=== PATIENT | female | born 1990 | race Hispanic/Latino ===

== ENCOUNTER 2019-05-05 00:28 | Inpatient (IN) ==
[2019-05-05 00:44] LABS: URINE SOURCE VOIDED
[2019-05-05 00:54] LABS: BILIRUBIN URINE NEGATIVE (NEGATIVE); BLOOD URINE SMALL (NEGATIVE); COLOR YELLOW; GLUCOSE URINE NEGATIVE (NEGATIVE); KETONE URINE NEGATIVE (NEGATIVE); LEUKOCYTES URINE MODERATE (NEGATIVE); NITRITE URINE NEGATIVE (NEGATIVE); PROTEIN URINE NEGATIVE (NEGATIVE); SP GRAVITY URINE 1.013; TURBIDITY URINE CLEAR (CLEAR); UROBILINOGEN URINE NORMAL (NORMAL)
[2019-05-05] MEDS: LR 1,000 ML IV SCH ×2 (02:30→03:34)
[2019-05-05 02:44] LABS: BASO# 0.02 X1000 (0.0-0.2); BASO% 0.2 % (0.0-0.8); EOS# 0.04 X1000 (0.0-0.7); EOS% 0.4 % (0.0-10.0); HEMATOCRIT 35.3 % (37.0-47.0); HEMOGLOBIN 12.2 g/dL (12.0-16.0); IMM GRAN# 0.07 X1000 (0.0-0.04); IMM GRAN% 0.8 % (0.0-0.5); LYMPH# 2.69 X1000 (1.2-3.4); LYMPH% 29.7 % (20.5-51.1); MCH 30.7 PG (27-31); MCHC 34.6 g/dL (33-37); MCV 88.7 FL (81-99); MONO# 0.75 X1000 (0.11-0.59); MONO% 8.3 % (1.7-9.3); MPV 11.6 FL (7.4-10.4); NEUT# 5.48 X1000 (1.4-6.5); NEUT% 60.6 % (42.2-75.2); PLT 198 X1000 (130-400); RBC 3.98 XMIL (4.2-5.4); RDW 12.7 % (11.5-14.5); WBC 9.05 X1000 (4.8-10.8)
[2019-05-05] MEDS ORDERED: PEPCID PO PRN ×2 (03:21)
[2019-05-05] MEDS ORDERED: REGLAN PO PRN (03:21)
[2019-05-05] MEDS ORDERED: ZOFRAN IV PRN (03:21)
[2019-05-05] MEDS ORDERED: TYLENOL PO PRN (03:21)
[2019-05-05] MEDS ORDERED: STADOL IV PRN (03:21)
[2019-05-05] MEDS ORDERED: KEFZOL 2 GM/D5W 2 GM/50 ML IVPB IV PRN (03:21)
[2019-05-05] MEDS ORDERED: PEPCID IV PRN (03:21)
[2019-05-05] MEDS ORDERED: XYLOCAINE-MPF 1% INJ PRN ×2 (03:23→07:04)
[2019-05-05] MEDS ORDERED: MINERAL OIL TOP PRN (03:23)
[2019-05-05] MEDS ORDERED: PITOCIN 30 UNITS/NS 30 UNIT/500 ML IV.SOLN IV SCH ×2 (03:30→07:15)
[2019-05-05] MEDS ORDERED: SODIUM CHLORIDE 0.9% INJ SCH (03:30)
[2019-05-05] MEDS ORDERED: LR 1,000 ML IV SCH (03:30)
[2019-05-05] MEDS ORDERED: NAROPIN 0.2% INJ ONE (03:45)
[2019-05-05 04:00] LABS: UR AMPHETAMINES QUAL NONE DETECTED (NONE DETECT); UR BARBITUATES QUAL NONE DETECTED (NONE DETECT); UR BENZODIAZEPIN QUAL NONE DETECTED (NONE DETECT); UR CANNABINOIDS QUAL NONE DETECTED (NONE DETECT); UR COCAINE QUAL NONE DETECTED (NONE DETECT); UR METHADONE QUAL NONE DETECTED (NONE DETECT); UR OPIATES QUAL NONE DETECTED (NONE DETECT); UR OXYCODONE QUAL NONE DETECTED (NONE DETECT); UR PCP QUAL NONE DETECTED (NONE DETECT)
[2019-05-05] MEDS ORDERED: FENTANYL-BUPIV-NS 500 MCG-0.125% 250 ML EPIDURAL SCH (04:00)
[2019-05-05] MEDS ORDERED: MOTRIN PO PRN (07:04)
[2019-05-05] MEDS ORDERED: BENADRYL PO PRN (07:04)
[2019-05-05] MEDS ORDERED: CYTOTEC PO PRN (07:04)
[2019-05-05] MEDS ORDERED: ATARAX PO PRN (07:04)
[2019-05-05] MEDS ORDERED: BENADRYL IV PRN (07:04)
[2019-05-05] MEDS ORDERED: PITOCIN IM PRN (07:04)
[2019-05-05] MEDS ORDERED: PERI MEDS (DERMOPLAST/NUPERCAINAL/TUCKS) MISC PRN (07:04)
[2019-05-05] MEDS ORDERED: NORCO-5 PO PRN (07:04)
[2019-05-05] MEDS ORDERED: M-M-R II VACCINE SUBQ ONE (07:04)
[2019-05-05] MEDS ORDERED: HYDROXYZINE IM PRN (07:04)
[2019-05-05] MEDS ORDERED: AMBIEN PO PRN (07:04)
[2019-05-05] MEDS ORDERED: NORCO-10 PO PRN (07:04)
[2019-05-05] MEDS ORDERED: BOOSTRIX VACCINE IM ONE (07:04)
[2019-05-05] MEDS ORDERED: MINERAL OIL PO PRN (07:04)
[2019-05-05] MEDS ORDERED: PITOCIN 20 UNITS/NS 20 UNITS/1,000 ML IV.SOLN IV SCH (07:15)
--- NOTE | 2019-05-05 08:29 | HISTORY AND PHYSICAL ---
HISTORY OF PRESENT ILLNESS: The patient is a 29-year-old female G3, P2 at 39 and 4/7 weeks who presents to Labor and Delivery with complaints of uterine contractions. She has been having contractions most of the day and then became more regular as the night wore on. care was unremarkable. Group B strep culture swab was negative. PAST MEDICAL HISTORY: Unremarkable. PAST SURGICAL HISTORY: None. PAST OB HISTORY: G3, P2. Spontaneous vaginal delivery x2. [employer] SUPERVISOR HISTORY: Menarche at age 15. REVIEW OF SYSTEMS: All systems reviewed and noncontributory. FAMILY HISTORY: Unremarkable. SOCIAL HISTORY: Tobacco use, none. Alcohol use, none. MEDICATIONS: vitamins. ALLERGIES: No known drug allergies. PHYSICAL EXAMINATION: VITAL SIGNS: Height 5 feet 4 inches, weight 128 pounds, temperature 98.6 degrees, blood pressure 112/64, pulse of 100, respirations 20. heart rate in the 150s with good rymw-gv-abut variability. HEENT: Pupils equal, round, reactive to light and accommodation. Extraocular movements intact. Oropharynx clear. NECK: Supple. No thyromegaly. LUNGS: Clear to auscultation. HEART: Regular rate and rhythm. ABDOMEN: Gravid, nontender. Cervix was 7 cm dilated, completely effaced, -1 station. EXTREMITIES: No clubbing, cyanosis, or edema noted. NEUROLOGIC: Cranial nerves 2-12 grossly intact. Motor 5/5, DTRs 2+ bilaterally of lower extremities. ASSESSMENT AND PLAN: A 29-year-old female G3, P2 at 39 and 4/7 weeks in active labor. The patient will be admitted. We will try to obtain an epidural per patient request. Anticipate vaginal delivery. cc: Troy Jordan III, MD
--- NOTE | 2019-05-05 12:10 | OPERATIVE NOTE ---
PROCEDURE DATE: 05/05/2019 SUBJECTIVE: The patient progressed to complete pushing had spontaneous vaginal delivery of a male infant, 6 pounds 5 ounces with Apgars of 9 and 10 at 6:38 on 05/05/2019 over a second-degree midline episiotomy. Cord blood sample was obtained at this time. Placenta was delivered intact with a 2 vessel cord. Second-degree midline episiotomy was repaired with 3-0 chromic in the usual fashion. ESTIMATED BLOOD LOSS: 200 mL. ANESTHESIA: Epidural. COUNTS: All counts were correct x2. cc: Troy Jordan III, MD
[2019-05-05] MEDS: PERICOLACE PO SCH ×2 (19:38→22:05)
[2019-05-06 05:57] LABS: BASO# 0.02 X1000 (0.0-0.2); BASO% 0.2 % (0.0-0.8); EOS# 0.08 X1000 (0.0-0.7); EOS% 0.6 % (0.0-10.0); HEMATOCRIT 32.4 % (37.0-47.0); IMM GRAN# 0.06 X1000 (0.0-0.04); IMM GRAN% 0.5 % (0.0-0.5); LYMPH% 25.1 % (20.5-51.1); MCH 30.7 PG (27-31); MCV 90.5 FL (81-99); MONO# 0.76 X1000 (0.11-0.59); MONO% 6.2 % (1.7-9.3); MPV 11.3 FL (7.4-10.4); NEUT# 8.33 X1000 (1.4-6.5); NEUT% 67.4 % (42.2-75.2); PLT 169 X1000 (130-400); RBC 3.58 XMIL (4.2-5.4); RDW 13.1 % (11.5-14.5); WBC 12.35 X1000 (4.8-10.8)
--- NOTE | 2019-05-06 08:30 | OB/GYN PROGRESS NOTE ---
- Subjective Pt is a 29yo PPD#1 s/p at 39.4wks. Pt currently w/o complaints. Pain well controlled. Ambulating and urinating w/o difficulty. tolerating regular diet, denies fever/c/n/v. Reports decreased lochia. +Bottle feeding. Does not desire control OB Physical Exam Vital Signs - 24 hr 05/05/19 08:30 05/05/19 08:55 05/05/19 09:30 Temperature 97.8 F 99 F Pulse Rate 120 H 107 H 105 H Respiratory Rate 20 20 20 Blood Pressure 112/57 97/55 101/54 O2 Sat by Pulse Oximetry 96 98 110 H 05/05/19 10:30 05/05/19 11:30 05/05/19 12:30 Temperature 98.4 F 97.8 F Pulse Rate 98 H 100 H 100 H Respiratory Rate 20 20 20 Blood Pressure 105/58 107/55 105/56 O2 Sat by Pulse Oximetry 98 97 97 05/05/19 14:45 05/05/19 19:30 05/05/19 23:53 Temperature 97.2 F L 98.2 F 96.9 F L Pulse Rate 101 H 99 H 86 Respiratory Rate 20 18 16 Blood Pressure 100/58 98/64 92/53 O2 Sat by Pulse Oximetry 98 98 98 - CONSTITUTIONAL General Appearance: appears well, alert, no apparent distress - RESPIRATORY Respiratory: lungs clear - CARDIOVASCULAR Cardiovascular: regular rate, rhythm - GASTROINTESTINAL (ABDOMEN) Abdominal Exam: non tender, soft (FF below umbilicus) - MUSCULOSKELETAL Extremity: no calf tenderness - PSYCHIATRIC Psych/Mental Status: normal mood/affect, oriented x 3 Active Medications Generic Name Dose Route Start Last Admin Trade Name Freq PRN Reason Stop Dose Admin Acetaminophen 650 mg 05/05/19 03:21 Tylenol PO Q4-6H PRN PRN Headache Hydrocodone Bitart/Acetaminophen 1 each 05/05/19 07:04 Barnwell-10 PO Q3-4H PRN PRN Pain (7-10 on Pain Scale) Hydrocodone Bitart/Acetaminophen 1 each 05/05/19 07:04 Barnwell-5 PO Q3-4H PRN PRN Pain (1-6 on Pain Scale) Benzocaine 1 each 05/05/19 07:04 05/05/19 10:09 Barbie Meds (Dermoplast/Nupercainal/Tucks) MISC 1 applic 3-4XDAY PRN PRN Administration episiotomy/hemorrhoids Diphenhydramine HCl 25 mg 05/05/19 07:04 Benadryl PO Q4H PRN PRN Itching Famotidine 40 mg 05/05/19 03:21 Pepcid PO Q12H PRN PRN GI upset or indigestion Hydroxyzine HCl 50 mg 05/05/19 07:04 Atarax PO Q3-4H PRN PRN Nausea Hydroxyzine HCl 50 mg 05/05/19 07:04 Hydroxyzine IM Q3-4H PRN PRN Nausea Ibuprofen 800 mg 05/05/19 07:04 Motrin PO Q8H PRN PRN cramping Misoprostol 800 microgm 05/05/19 07:04 Cytotec PO PRN PRN Severe bleeding Oxytocin 20 unit 05/05/19 07:04 Pitocin IM PRN PRN Severe bleeding Senna/Docusate Sodium 1 each 05/05/19 21:00 05/05/19 22:05 Pericolace PO Not Given QHS BRANDON Zolpidem Tartrate 10 mg 05/05/19 07:04 Ambien PO HS PRN PRN Sleep Laboratory Results - last 24 hr 05/06/19 05:44 WBC 12.35 H RBC 3.58 L Hgb 11.0 L Hct 32.4 L MCV 90.5 MCH 30.7 MCHC 34.0 RDW Std Deviation 13.1 Plt Count 169 MPV 11.3 H Immature Gran % (Auto) 0.5 Neut % (Auto) 67.4 Lymph % (Auto) 25.1 Hanson % (Auto) 6.2 Eos % (Auto) 0.6 Baso % (Auto) 0.2 Immature Gran # (Auto) 0.06 H Neut # (Auto) 8.33 H Lymph # (Auto) 3.10 Hanson # (Auto) 0.76 H Eos # (Auto) 0.08 Baso # (Auto) 0.02 OB Assessment & Plan (1) Vaginal delivery Status: Acute Plan: 29 yo PPD#1 s/p at 39w4d 1. HD stable, afebrile 2. Routine PP care 3. Encourage ambulation 4. Bottle feeding 5. No plans for contraception
[2019-05-06] MEDS: PERICOLACE PO SCH (21:03)
[2019-05-07 08:03] VITALS: BP 99/64
== END 2019-05-07 11:30 | disposition home or self-care (01) | DRG 807 ==
LOC: EDSTATUS 00:28 → OPLD 00:28 → LD 00:30
PROVIDERS: ADMIT Obstetrics & Gynecology; ATTEND Obstetrics & Gynecology